=== PATIENT | female | born 1990 | race Caucasian/White ===

== ENCOUNTER 2021-07-01 00:13 | Observation (INO) | payer MEDICAID ==
[~2021-07-01] VITALS: Ht 157.5 cm; Wt 67.1 kg
[2021-07-01] MEDS ORDERED: PREN1TAB78 PO (00:53)
== END 2021-07-01 03:00 | disposition home or self-care (01) ==
LOC: 8 EST LDRP 00:13
PROVIDERS: ADMIT Obstetrics & Gynecology; ATTEND Obstetrics & Gynecology
DX: O26.893 Other specified pregnancy related conditions, third trimester (principal); R10.84 Generalized abdominal pain; O99.343 Other mental disorders complicating pregnancy, third trimester; F41.9 Anxiety disorder, unspecified; Y04.0XXA Assault by unarmed brawl or fight, initial encounter; Y93.89 Activity, other specified; Y92.89 Other specified places as the place of occurrence of the external cause; Y99.8 Other external cause status; Z3A.31 31 weeks gestation of pregnancy
CPT/HCPCS: 59025; 76815; G0378; 99281; G0379